=== PATIENT | male | born 1985 | race Caucasian/White ===

== ENCOUNTER → 2017-05-15 | Outpatient (CLI) | payer OTHER | LOC: M RAD 10:12 | DX: J32.0 Chronic maxillary sinusitis (principal) | CPT/HCPCS: 70486 ==

== ENCOUNTER 2017-07-16 09:52 | Day surgery (SDC) | payer OTHER ==
[2017-07-16] MEDS: LR 1,000 ML IV ×2 (10:51→13:10)
[2017-07-16] MEDS: LIDOCAINE W/EPINEPHRINE 1% 20ML VIAL As Ordered ×2 (11:48→12:35)
[2017-07-16] MEDS: OXYMETAZOLINE NASAL SPRAY (AFRIN) As Ordered (11:54)
[2017-07-16] MEDS: SODIUM CHLORIDE 0.9% NASAL GEL 15GM (AYR) As Ordered (11:55)
[2017-07-16] MEDS: METHYLENE BLUE 0.5% (5MG/ML) 10 ML AMP (PROVAYBLUE)(Q9968 PER 1MG) As Ordered (11:56)
[2017-07-16] MEDS ORDERED: GLYCOPYRROLATE INJ 0.2 MG/ML 2 ML VIAL As Ordered ×2 (12:40)
[2017-07-16] MEDS ORDERED: MIDAZOLAM INJ 2 MG/2 ML VIAL (J2250) As Ordered (12:40)
[2017-07-16] MEDS ORDERED: NEOSTIGMINE 10 MG/10 ML VIAL (J2710) As Ordered (12:40)
[2017-07-16] MEDS ORDERED: LIDOCAINE 2% INJ 100 MG/5 ML SDV (FOR ANES.) As Ordered (12:40)
[2017-07-16] MEDS ORDERED: ONDANSETRON 4MG/2ML VIAL (J2405) As Ordered (12:40)
[2017-07-16] MEDS ORDERED: fentaNYL 250 MCG/5 ML INJECTION (J3010) As Ordered (12:40)
[2017-07-16] MEDS ORDERED: PROPOFOL 200 MG/20 ML VIAL As Ordered (12:40)
[2017-07-16] MEDS ORDERED: ACETAMINOPH W/CODEINE #3 TAB UD PO (13:15)
[2017-07-16] MEDS ORDERED: fentaNYL 100 MCG/2 ML INJECTION (J3010) IV (13:30)
[2017-07-16] MEDS ORDERED: ONDANSETRON 4MG/2ML VIAL (J2405) IV (13:30)
[2017-07-16] MEDS ORDERED: PERCOCET 5MG/325MG TAB As Ordered (15:43)
[2017-07-16] MEDS: PERCOCET 5MG/325MG TAB PO (15:46)
== END 2017-07-16 16:50 | disposition home or self-care (01) ==
LOC: M SDC 16:50
DX: J34.2 Deviated nasal septum (principal); J34.3 Hypertrophy of nasal turbinates; K21.9 Gastro-esophageal reflux disease without esophagitis; Z79.899 Other long term (current) drug therapy
CPT/HCPCS: 30520

== ENCOUNTER 2017-07-16 20:16 | Emergency (ER) | payer OTHER ==
[2017-07-16] MEDS: FLUORESCEIN OPHTH 1 MG STRIP OS (21:30)
[2017-07-16] MEDS: TETRACAINE 0.5% OPHTH SOLN 4ML OS (21:45)
[2017-07-16] MEDS: ERYTHROMYCIN OPHTH OINT OS (22:30)
== END 2017-07-16 22:39 | disposition home or self-care (01) ==
LOC: M ED 20:16
DX: S05.02XA Injury of conjunctiva and corneal abrasion without foreign body, left eye, initial encounter (principal); X58.XXXA Exposure to other specified factors, initial encounter; Y92.238 Other place in hospital as the place of occurrence of the external cause; Z98.890 Other specified postprocedural states
CPT/HCPCS: 99284